=== PATIENT | male | born 2000 | race Two or more races ===

== ENCOUNTER 2024-05-23 11:03 | Emergency (ER) | payer OTHER ==
[~2024-05-23] VITALS: Ht 170.2 cm; Wt 58.1 kg
[2024-05-23] MEDS ORDERED: FAMOtidine 10 MG/ML (4ML VIAL) IV ONE (13:30)
[2024-05-23] MEDS ORDERED: 0.9 % SODIUM CHLORIDE 1,000 ML IV ONE (13:30)
[2024-05-23] MEDS ORDERED: ONDANSETRON HCL 2 MG/ML VIAL IV ONE (13:30)
[2024-05-23] MEDS ORDERED: FAMOTIDINE/PF 20 MG/2 ML VIAL ONE (13:37)
[2024-05-23] MEDS ORDERED: ONDANSETRON HCL 2 MG/ML VIAL ONE (13:37)
[2024-05-23 14:16] LABS: HEMATOCRIT 50.5 % (39.0-48.0); HEMOGLOBIN 17.6 g/dL (13-16.00); MEAN CELL VOLUME 92.3 fL (80.0-100.00); MEAN CORPUSCULAR HEMOGLOBIN 32.2 pg (27.00-32.0); MEAN CORPUSCULAR HGB CONC 34.9 g/dl (32.0-36.0); PLATELET COUNT 297 K/uL (150-450); RED BLOOD COUNT 5.47 M/uL (4.00-6.00); RED CELL DISTRIBUTION WIDTH 12.5 % (11.5-14.5)
[2024-05-23 14:32] LABS: BILIRUBIN TOTAL 1.11 mg/dL (0.3-1.2); CALCIUM 9.8 mg/dL (8.5-10.1); GFR 91.04; GLOBULINA 3.9 G/DL (2.4-3.5); POTASSIUM 3.67 mEq/L (3.5-5.1); TOTAL PROTEIN 8.9 gm/dL (6.4-8.2)
[2024-05-23 14:47] LABS: PH,URINE 6.5 (5.0-8.0); URINE APPEARANCE Clear; URINE BILIRRUBIN Negative (NEGATIVE); URINE BLOOD Negative; URINE COLOR Dark Yellow; URINE GLUCOSE Negative (NEGATIVE); URINE LEUKOCYTE Negative; URINE NITRATE Negative; URINE PROTEIN Negative (NEGATIVE)
[2024-05-23 14:52] LABS: URINE BACTERIA 6.2 uL (0.0-1933); URINE RBC 2.1 uL (0.0-20.8)
[2024-05-23 14:54] LABS: URINE CAST 1.06 uL (0.0-1.40); URINE EPITHELIAL CELLS 0.4 uL (0.0-38.8); URINE KETONE 40 (NEGATIVE); URINE WBC 1.5 uL (0.0-23.2)
[2024-05-23] MEDS ORDERED: PEPCID AC20 MG PO (16:31)
[2024-05-23] MEDS ORDERED: ZOFRAN8 MG PO (16:31)
== END 2024-05-23 17:03 | disposition home or self-care (01) ==
LOC: ER 11:04
PROVIDERS: General Practice
DX: R10.13 Epigastric pain (principal); R10.9 Unspecified abdominal pain
CPT/HCPCS: 36415; 74177; Q9965